=== PATIENT | female | born 1975 | race Hispanic/Latino ===

== ENCOUNTER → 2024-02-25 | Day surgery (SDC) | payer MEDICARE ==
[~2024-02-25] MED LIST: BUMETANIDE1 MG PO; FENTANYL CITRATE/PF 100MCG/2 ML INJ ONE; HYDROXYZINE HCL25 MG PO; IMURAN50 MG PO; LIDOCAINE HCL 2% LOCAL INJ 5 ML SDV VIAL INJ ONE; LIPITOR10 MG PO; LOSARTAN POTAS100 MG PO; MIDAZOLAM HCL 2 MG/2 ML VIAL ONE; NIFEDIPINE ER30 M1 PO; PROPOFOL IV EMULSION 10 MG/ML 20 ML VIAL ONE; PROVERA2.5 MG PO; RENA-VITE RX T1 EACH PO
[2024-02-25 07:45] LABS: BASOPHILS % 0.6 % (0.0-1.0); EOSINOPHILS # (AUTO) 0.2 (0.0-0.4); EOSINOPHILS % 3.8 % (0.0-6.0); HEMATOCRIT 31.4 % (34.2-44.1); HEMOGLOBIN 9.9 g/dL (12.0-16.0); LYMPHOCYTES # (AUTO) 1.4 (1.0-3.2); LYMPHOCYTES % 21.5 % (18.0-39.1); MEAN CORPUSCULAR HEMOGLOBIN 29.6 pg (28-32); MEAN CORPUSCULAR HGB CONC 31.5 g/dL (31-35); MEAN CORPUSCULAR VOLUME 93.7 fL (81-99); MONOCYTES # (AUTO) 0.7 (0.2-0.8); MONOCYTES % 11.5 % (4.4-11.3); NEUTROPHILS # (AUTO) 3.9 (2.1-6.9); NEUTROPHILS % 62.1 % (38.7-80.0); PLATELET COUNT 156 x10e3/uL (140-360); RED BLOOD COUNT 3.35 x10e6/uL (3.6-5.1); RED CELL DISTRIBUTION WIDTH 13.2 % (11.7-14.4); WHITE BLOOD COUNT 6.33 x10e3/uL (4.8-10.8)
[2024-02-25 07:58] LABS: INR 0.99; PARTIAL THROMBOPLASTIN TIME 29.2 seconds (23.8-35.5); PROTHROMBIN TIME 13.6 seconds (11.9-14.5)
[2024-02-25 08:08] LABS: ANION GAP 20.6 mmol/L (8-16); CALCIUM 8.8 mg/dL (8.4-10.2); CREATININE, SERUM 6.54 mg/dL (0.57-1.11); POTASSIUM 3.6 mmol/L (3.5-5.1)
[2024-02-25] MEDS: SODIUM CHLORIDE 0.9% 500ML 500 ML ONE (08:56)
[2024-02-25 10:13] VITALS: TEMP 97.3
[2024-02-25 10:38] VITALS: BP 129/84; PULSE 76; RESP 18; O2SAT 100
== END | disposition home or self-care (01) ==
LOC: OR 06:47
PROVIDERS: ATTEND Internal Medicine Gastroenterology
DX: K21.9 Gastro-esophageal reflux disease without esophagitis (principal); D12.2 Benign neoplasm of ascending colon; D12.3 Benign neoplasm of transverse colon; D12.4 Benign neoplasm of descending colon; D13.0 Benign neoplasm of esophagus; K31.A11 Gastric intestinal metaplasia without dysplasia, involving the antrum; K31.89 Other diseases of stomach and duodenum; K29.80 Duodenitis without bleeding; K44.9 Diaphragmatic hernia without obstruction or gangrene; K57.30 Diverticulosis of large intestine without perforation or abscess without bleeding; K64.8 Other hemorrhoids; I12.0 Hypertensive chronic kidney disease with stage 5 chronic kidney disease or end stage renal disease; N18.6 End stage renal disease; E78.5 Hyperlipidemia, unspecified; Z99.2 Dependence on renal dialysis; Z79.899 Other long term (current) drug therapy
CPT/HCPCS: 36415; 43239; 45384; 45385; 80048; 84702; 85025; 85610; 85730; 93005; J2001; J2250; J2704; J3010; J7040; J2003

== ENCOUNTER → 2024-03-03 | Outpatient (REF) | payer MEDICARE ==
[~2024-03-03] MED LIST changes: -FENTANYL CITRATE/PF 100MCG/2 ML INJ ONE; -LIDOCAINE HCL 2% LOCAL INJ 5 ML SDV VIAL INJ ONE; -MIDAZOLAM HCL 2 MG/2 ML VIAL ONE; -PROPOFOL IV EMULSION 10 MG/ML 20 ML VIAL ONE
== END ==
LOC: US 10:02
PROVIDERS: ATTEND Internal Medicine Gastroenterology
DX: R74.8 Abnormal levels of other serum enzymes (principal)
CPT/HCPCS: 76705

== ENCOUNTER → 2024-09-24 | Outpatient (REF) | payer MEDICARE | LOC: US 09:42 | PROVIDERS: ATTEND Nurse Practitioner Family | DX: R74.8 Abnormal levels of other serum enzymes (principal) | CPT/HCPCS: 76705 ==